=== PATIENT | male | born 1965 | race Caucasian/White ===

== ENCOUNTER 2018-11-25 00:49 | Day surgery (SDC) | payer OTHER ==
[~2018-11-25] VITALS: Ht 175.3 cm; Wt 90.3 kg
[2018-11-25 07:45] VITALS: BP 148/88
[2018-11-25] MEDS ORDERED: NORMOSOL R SOLN(*) 1000 ML BAG 1,000 ML IV PRN (08:30)
[2018-11-25] MEDS ORDERED: LIDOCAINE/SOD BICARB 8.4% SYR ID ONE (08:30)
[2018-11-25] MEDS ORDERED: LIDOCAINE MPF 1% 5 ML VIAL ONE (09:11)
[2018-11-25] MEDS ORDERED: PROPOFOL EMUL(*) 10MG/ML 20 ML 40 ML ONE (09:11)
[2018-11-25 09:30] VITALS: BP 107/68
--- NOTE | 2018-11-25 09:30 | NUR ---
0930 SBAR REPORT WAS RECEIVED FROM DR. BOLAND AND MADDIE NÚÑEZ. PATIENT IS BREATHING SPONTANEOUSLY AT A MODERATE RATE AND DEPTH. LUNGS ARE CLEAR. HE IS ON 2 LITERS OXYMASK. IV IS INFUSING. BOWEL SOUNDS ARE ACTIVE. HE IS SLEEPING UNABLE TO ASSESS PAIN OR NAUSEA.
[2018-11-25 10:00] VITALS: BP 125/74
[2018-11-25 10:11] VITALS: BP 126/86
[2018-11-25 10:13] VITALS: BP 122/77
--- NOTE | 2018-11-25 10:30 | NUR ---
1000 PATIENT WOKE UP. HE DENIES ANY NAUSEA OR PAIN. HE WAS MOVED TO ROOM AIR AND IS TOLERATING THIS WELL. 1003 PATIENT BEGAN DRINKING COFFEE 1011 BEGAN DOING ORTHOSTATICS WITH PATIENT. HE DENIES ANY DIZZINESS OR LIGHTHEADEDNESS. 1013 PATIENT IS STABLE ON HIS FEET 1014 IV WAS SALINE LOCKED 1015 PATIENT BEGAN GETTING DRESSED 1030 PATIENT WAS AMBULATORY ON DISCHARGE. LUNGS ARE CLEAR. HE IS STABLE. DENIES ANY DIZZINESS OR LIGHTHEADEDNESS. SEE DISCHARGE ASSESSMENT.
== END 2018-11-25 10:30 | disposition home or self-care (01) ==
LOC: OR 00:49
PROVIDERS: ATTEND Family Medicine
DX: Z12.11 Encounter for screening for malignant neoplasm of colon (principal)
CPT/HCPCS: 00812; 45378; J2001; J2704

== ENCOUNTER 2018-11-29 04:18 | Outpatient (RCR) | payer OTHER ==
--- NOTE | 2018-11-30 13:27 | RADIOLOGY IMAGING REPORT ---
FACILITY: [facility] [place] PATIENT NAME: Cristian Berrios : 1965 MR: [id number] V: [id number] EXAM DATE: ORDERING PHYSICIAN: KRISTIN PERLA TECHNOLOGIST: Location: [facility] Patient: Cristian Berrios : 1965 Visit/Account:[id number] Date of Sevice: 11/29/2018 NM THYROID UPTAKE - MULT. DE HISTORY: Hyperthyroidism TECHNIQUE: 359 microcuries I-123 were administered orally. Radioiodine uptake values were calculated at 24 hours following tracer administration. Gamma camera images were obtained of the neck in variou s orientations. COMPARISON: None FINDINGS: Thyroid radioiodine uptake at 24 hours is 51.4% (normal range 15-40 %). Thyroid radioiodine uptake at six hours is 32.4% (normal range 10-15%) Size and shape: Normal. Homogeneity: Normal. Nodules: None evident. IMPRESSION: Abnormally high 24 hour thyroid uptake of 51.4% Abnormally high six hour thyroid uptake of 32.4% Report Dictated By: Deepika Sierra MD at 11/30/2018 1:21 PM Report E-Signed By: Deepika Sierra MD at 11/30/2018 1:23 PM JOSE DANIELN:DAVIN
== END 2018-11-29 18:00 | disposition home or self-care (01) ==
LOC: EDSTATUS 04:18 → NUC 04:18
PROVIDERS: ATTEND Family Medicine
DX: R94.6 Abnormal results of thyroid function studies (principal)
CPT/HCPCS: 78014; A9516

== ENCOUNTER → 2018-12-30 | Outpatient (CLI) | payer OTHER | LOC: NUC 06:59 | PROVIDERS: ATTEND Radiology Radiation Oncology | DX: E03.9 Hypothyroidism, unspecified (principal) ==

== ENCOUNTER → 2019-01-04 | Outpatient (CLI) | payer OTHER ==
--- NOTE | 2019-01-05 01:04 | ONCOLOGY FOLLOW UP NOTE ---
EVENT DATE: January 04, 2019 DIAGNOSIS Thyrotoxicosis. PROCEDURE Oral administration of iodine 131 in Nuclear Medicine to ablate thyroid active cells. PROCEDURE DESCRIPTION Patient has previously met with myself and the nuclear medicine staff for appropriate education, and has signed all appropriate consent forms. He is aware of the radiation precautions that are necessary for this procedure. Patient received an oral dose of 19.8 mCi of iodine 131 under direct supervision in Nuclear Medicine. As a precautionary measure, I also gave him a prescription for a Medrol Dosepak if he should have any swelling of the thyroid gland. He will otherwise not need to take the medication. The patient has been scheduled for a followup TSH and free T4 in approximately six to eight weeks. We will perform serial measurements until the patient is either euthyroid or appropriately hypothyroid and stable, and then turn his care back over to primary care. The patient is instructed to contact me if he has any adverse effects from the iodine 131 administration. We have drawn baseline laboratory studies at the cancer center two weeks ago. Patient's baseline TSH was less than 0.02 on 12/28/18, and his baseline free T4 was 2.51 with a baseline free T3 of 8.4. Those numbers should correct over two to six months, with the average being two to four months. MTDD
== END ==
LOC: NUC 11:36
PROVIDERS: ATTEND Radiology Radiation Oncology
DX: E03.9 Hypothyroidism, unspecified (principal)
CPT/HCPCS: 79005; A9517; A9528

== ENCOUNTER 2019-02-08 09:00 | Outpatient (RCR) | payer OTHER ==
[2018-12-28 15:27] LABS: PLATELET COUNT, AUTOMATED 337 K/uL (150-450)
--- NOTE | 2018-12-28 23:39 | TOBIN CONSULT ---
EVENT DATE: December 28, 2018 REASON FOR CONSULTATION Patient is here to discuss iodine-131 for thyroid toxicosis. 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 Patient is referred to me by Dr. Bowers. The patient states that he had laboratory studies approximately two years ago which revealed an abnormal TSH. The patient states he did not have any symptoms of weight loss or excessive sweating or tremulousness at that time. At no point has he had any excessive palpitations. He has been noted to have an elevated resting pulse rate, however, over the last two years generally in the 100 to 130 range, and he has also been noted to have an elevated blood pressure as well. He states those are his only symptoms. The patient recently was seen by Dr. Bowers and additional laboratory studies performed in his office. That subsequently led to a nuclear medicine uptake scan which was performed on 11/29/18. 123 was administered orally, and overactive thyroid was appreciated at 6 hours and at 24 hours. The relative values were 34% (normal 10% to 15%) at 6 hours and 51% (normal 15% to 40%) at 24 hours. There was diffuse uptake with no cold spots. There appeared to be slightly more uptake on the right side compared to the left on my review of the films with the patient today. The patient reviewed options with the primary care and also has been doing some independent reading. He would like to discuss iodine-131 treatment. Patient denies any ocular symptoms at this time. He is not having any headaches. As stated above, he is not experiencing any palpitations, weight loss, or changes in hair or skin. MEDICATIONS None. ALLERGIES None. PAST MEDICAL HISTORY Unremarkable except stated above. PAST SURGICAL HISTORY Prior vasectomy. FAMILY HISTORY Notable for a brother with recent diagnosis of pancreatic carcinoma in his mid 50s. He is at the [facility] at this time receiving chemotherapy and radiation. I believe he is 57. Patient states his father may have had cancer at age 75 as well, but is uncertain of the type. His mother is still alive and has Parkinson disease at age 80. This developed in her 60s. SOCIAL HISTORY Patient is . 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 REVIEW OF SYSTEMS Notable for minor fatigue, rare sweats. Occasionally has shortness of breath with exertion. Mild urgency. PHYSICAL EXAMINATION GENERAL: Pleasant 53-year-old male of medium build. VITAL SIGNS: BP 157/86, pulse 106 resting, respirations 16, O2 sat 91% on room air. Weight 214. Fatigue is rated as a 3 on a scale of 1-10. Denies pain. HEENT: Unremarkable. NECK: Thyroid gland does not appear to be overly enlarged or tender. No nodularity. LUNGS: Clear to auscultation bilaterally. HEART: Sounds regular with no audible murmur. ABDOMEN: Soft. No gross organomegaly, mass, or tenderness. EXTREMITIES: No edema or cyanosis. NEUROLOGIC: Grossly intact. IMPRESSION AND PLAN This is a 53-year-old gentleman who presents to his providers with an abnormal resting pulse rate, mild hypertension, with laboratory studies and uptake scan confirmatory for toxic diffuse goiter (thyrotoxicosis) with no crisis or storm. We briefly discussed medications, surgery, watchful waiting. We also discussed the present status of iodine-131 and its role in the use of treating this condition. There is an excellent review on line from the 2016 [place] [employer] guidelines for diagnosis and management of hyperthyroidism and other causes of thyroid toxicosis. The authors state that iodine-131 is utilized by approximately 60% to 70% of endocrinologists in this country at this time. The options need to be individualized for patients based on their desires. Prevalence of hyperthyroidism is 1.2% in the [place] with the most common causes including Graves disease, toxic multinodular goiter, and toxic adenoma. For the patients who desire to proceed with radioactive iodine, the present consensus is to deliver a dose of 15-20 mCi of iodine-131 and intentionally attempt to produce a hypothyroid state within 6-12 months. Once the patient is hypothyroid, it is relatively easy to manage the patient with supplementation with fairly stable needs going forward. In the past, we have attempted to use lower doses to produce a euthyroid state; however, that frequently caused patients to receive a second dose of iodine-131 and sometimes be undertreated significantly for 3-6 months. Patients who are moderately to severely symptomatic, they would be placed on a beta nolvia or methimazole, and then the methimazole would be stopped 3 days before the iodine-131 therapy. This particular patient does not have any significant symptoms of thyrotoxicosis and, therefore, would not need methimazole at this time. He states he is not on a beta nolvia and presently seems to have fairly normal energy levels, although at times his fatigue level is higher than others which may be related to his tachycardia, although it is difficult to discern exactly. I discussed the typical protocol in which we deliver iodine-131 in our Nuclear Medicine Department. Patient will be placed on radiation precautions for 3 days. They would have an instructional session with the polysomnographic technologist within the next week. I would supervise the oral administration, and I would also obtain baseline laboratory studies at 6 and 12 weeks going forward. I told the patient that most likely he will need laboratory studies q.6-8 weeks for the remainder of this year. I did have blood work drawn today for a new baseline, free T4, T3, and TSH. CBC and CMP were also obtained. The latter were normal, and the thyroid studies were pending at the time of this dictation. Tentative plan is to deliver the iodine-131 next Thursday providing we can get the isotope in place by then. He would also have a whole body uptake scan 10 days later to document efficacy. Signed consent was obtained from the patient today. He appears to be well informed, and all questions were answered to his satisfaction. Thank you for the referral. I will refer the patient back to primary care after approximately 3 months when all laboratory studies are hopefully stable. The efficacy should be 85% to 90%, and the time to become hypothyroid is variable from 2 to 6 months on average. IBAND
[2019-02-07 08:27] VITALS: BP 146/83
[2019-02-07 08:42] LABS: PLATELET COUNT, AUTOMATED 267 K/uL (150-450)
[2019-02-08 09:07] VITALS: BP 136/86
--- NOTE | 2019-02-08 10:45 | ONCOLOGY FOLLOW UP NOTE ---
EVENT DATE: February 08, 2019 DIAGNOSES Thyroid toxicosis, status post Iodine-131 therapy, January 04, 2019. Patient receiving 19.8 mCi under my direction in Nuclear Medicine. INTERVAL HISTORY The patient is being monitored for normalization of the thyroid blood test following therapeutic Iodine-131 treatment for hyperthyroidism. Patient was diagnosed in November of this year as being hyperthyroid. He had significantly elevated Nuclear Medicine Uptake scan with 123. His TSH was less than 0.02. Patient has elected to have Iodine-131 therapy as opposed to surgery or medications. Presently, we are awaiting for full effect of the Iodine-131 treatment, which is typically in the two month to six month range. Following oral administration of the Iodine-131, the patient does require feeling normal for the following week. After that period of time, he has noted a slight increase in fatigue. This is nonspecific. He denies any palpitations. No excessive sweating. I was able to do normal activities throughout the day. He does have a vague headache in the temporal area bilaterally. He has also noticed some nonspecific fullness in the lower neck. Yesterday, the patient had lab work drawn, which demonstrates his free T4 to remain elevated at 5.1 (normal 0.7 to 2.1). TSH remains overly suppressed at less than 0.02. Total T3 is still pending. CBC and CMP were normal. MEDICATIONS Ibuprofen p.r.n. ALLERGIES None. PAST MEDICAL HISTORY Thyroid toxicosis, status post Iodine-131 therapy. PAST SURGICAL HISTORY Prior vasectomy. FAMILY HISTORY Brother with pancreatic carcinoma in his 50s. He was at the [facility] receiving chemotherapy and radiation in his late 50s. His father had cancer at around 75 but he is uncertain of the type. Mother is still alive and has Parkinson's disease at age 80; that developed in her 60s. SOCIAL HISTORY Patient is . 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 REVIEW OF SYSTEMS Notable for the fatigue and some headaches. Otherwise unremarkable. PHYSICAL EXAMINATION GENERAL: Pleasant 53-year old male of medium build. VITAL SIGNS: Weight 214, height 59 inches, BP 136/86, pulse 70 and regular, respirations 16. O2 sat 96%. Fatigue is rated at 6. HEENT: Notable for nonspecific swelling of the thyroid gland with no discrete nodularity. Intraoral inspection reveals no exudates. LUNGS: Clear bilaterally. HEART: Regular. No audible murmur. ABDOMEN: No gross organomegaly, mass or tenderness. NEUROLOGIC: Intact. IMPRESSION Thyrotoxicosis, status post Iodine-131 therapy. PLAN Recheck full laboratory parameters in eight weeks. I suspect by that point we should start to see some normalization of the TSH back in the 0.3 to 0.5 range. In general, it takes anywhere from two months to six months for the Iodine-131 therapy to be effective and is variable from patient to patient. He will have blood work drawn two days before he sees me. The patient will try massage and NSAIDs on a p.r.n. basis for the headaches and I strongly suspect he will be feeling better by the next clinical appointment. Updated note will be sent to Dr. Bowers at that time. NATALIYA
== END 2019-03-27 ==
LOC: RAON 09:00
PROVIDERS: ATTEND Radiology Radiation Oncology
DX: E05.90 Thyrotoxicosis, unspecified without thyrotoxic crisis or storm (principal); I10 Essential (primary) hypertension
CPT/HCPCS: 36415; 82040; 82247; 82310; 82374; 82435; 82565; 82947; 84075; 84132; 84155; 84295; 84439; 84443; 84450; 84460; 84480; 84481; 84520; 85025; 99212

== ENCOUNTER 2019-06-14 11:57 | Outpatient (RCR) | payer OTHER ==
[2019-04-01 08:35] VITALS: BP 137/83
[2019-04-05 09:00] VITALS: BP 140/83
--- NOTE | 2019-04-05 10:36 | ONCOLOGY FOLLOW UP NOTE ---
EVENT DATE: April 05, 2019 CHIEF COMPLAINT/REASON FOR VISIT Known history of hyperthyroidism. Patient received Iodine-131 therapy under my direction, January 04, 2019. He received 19.8 mCi in Nuclear Medicine Department of [facility]. Patient is here for followup labs and review clinical status. INTERVAL HISTORY Overall, the patient has been doing exceptionally well. He was feeling normal until last . About for days ago, he started feeling sluggish for no reason. He was due for his blood work at that time and had a TSH and free T4 drawn April 01, 2019. TSH was 0.77 and free T4 was 0.3 (normal T4 is 0.78 to 2.19). Patient also feels he has some minor fluid retention in the last few days. He also reports last night that he has an area of the back of the scalp that was causing some pruritus. MEDICATIONS Ibuprofen p.r.n. ALLERGIES None. PAST MEDICAL HISTORY Thyroid toxicosis, status post Iodine-131 therapy, December 2018. PAST SURGICAL HISTORY Prior vasectomy. FAMILY HISTORY Brother with pancreatic cancer in his 50s. He was at the [facility] with chemotherapy and radiation. Gather had cancer of uncertain type at age 75. Mother is alive with Parkinson's disease in her 80s. Symptoms developed in her 60s. SOCIAL HISTORY Patient is . 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 REVIEW OF SYSTEMS Notable for the fatigue, occasional headaches and minor fluid retention as listed above. Otherwise unremarkable. PHYSICAL EXAMINATION GENERAL: Karnofsky Performance Status: 90. VITAL SIGNS: BP 140/83, pulse 83, respirations 16, temperature 97.2, O2 sat 91% on room air, weight 226. Fatigue rated as 5 on a scale of 1 to 10. HEENT: Notable for small area of what appears to be early folliculitis on the occipital area on the left, only minor redness at this time with associated dry skin. NECK: No lymphadenopathy. No tenderness noted of the gland, which is significantly smaller. LUNGS: Clear bilaterally. HEART: Regular. No audible murmur. ABDOMEN: Soft. No gross organomegaly EXTREMITIES: No edema or cyanosis. NEUROLOGIC: Intact. IMPRESSION AND PLAN Thyrotoxicosis, appears to have responded to the Iodine-131 therapy. His numbers indicate that he is gradually headed into a hypothyroid state over the next two to three weeks as well as his symptom complex. At this time, I would like to start him on levothyroxine at a relatively low dose of 0.25 mg q.d. This was phoned into [facility]. Labs will be repeated in four to five weeks and the numbers will be rechecked. I also gave the patient prescription for Z-Al if the folliculitis gets worse. He states he also has history of some acneiform lesions, which all resolved after his Iodine-131 therapy. Patient's presenting symptom of elevated pulse rate has resolved as well with his pulse today at 83 resting. Plan is to normalize his laboratory studies over the next six months and then I will release him back to Dr. Bowers's clinic exclusively. All questions were answered to his satisfaction over a 40-minute appointment including 30 minutes [id number] and 10 minutes reviewing laboratory studies and clinical history in detail. NATALIYA
[2019-05-09 09:05] VITALS: BP 142/83
[2019-05-09 09:19] LABS: PLATELET COUNT, AUTOMATED 320 K/uL (150-450)
[2019-05-10 12:18] VITALS: BP 142/87
--- NOTE | 2019-05-10 14:09 | ONCOLOGY FOLLOW UP NOTE ---
EVENT DATE: May 10, 2019 CHIEF COMPLAINT/REASON FOR VISIT Patient is here to go over recent laboratory studies. Known history of hyperthyroidism/thyrotoxicosis. Patient received iodine-131 under my direction on January 04, 2019. Received 19.8 millicuries in Nuclear Medicine Department of [facility]. INTERVAL HISTORY The patient seen for a followup appointment today. He states he still is feeling sluggish during the day. He did run out of levothyroxine last week and took a dose on Thursday, Thursday and Thursday and then elected to have his blood work repeated on May 09, 2019, which was yesterday. He essentially was off any replacement medicine for five days. The TSH was starting to move up at his last appointment in March to 0.77. Due to his fatigue symptom, I placed him on low-dose levothyroxine hoping that he would feel more like his normal self. His free T4 at that time was low at 0.3 with normal being 0.8 to 2.2. Patient does remain very busy. 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 Updated TSH is undetectable at less than 0.02 and total T4 was 5.6 with normal being 5.5 to 11 ug/dL. MEDICATIONS Ibuprofen p.r.n. ALLERGIES None. PAST MEDICAL HISTORY Thyrotoxicosis, status post iodine-131 therapy, December 2018. PAST SURGICAL HISTORY Vasectomy. FAMILY HISTORY Brother with pancreatic carcinoma in his 50s, treated at [facility]. Father had cancer of uncertain type, age 75. Mother had Parkinson's disease in her 80s. Symptoms developed in her 60s. SOCIAL HISTORY Patient is . 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 REVIEW OF SYSTEMS Notable for fatigue. He also states he developed a lesion on his left eyelid over the last week. This happened after he was swimming in the ocean. PHYSICAL EXAM GENERAL: Pleasant 53-year old male, medium build. VITAL SIGNS: Weight 219, BP 142/87, pulse 84, respirations 16, O2 sat 93%. NECK: Minor fullness. Otherwise unremarkable. Remainder of exam deferred as the purpose of today's visit was predominantly to go over laboratory studies and advise accordingly. IMPRESSION/PLAN 1. Thyrotoxicosis. Status post iodine-131 therapy. I do not think the present laboratory studies are entirely accurate due to the way the patient was taking his levothyroxine this past week. I would like to wait an additional two weeks with the patient off levothyroxine completely and then recheck his free T4 and TSH. This will be done the first week in May. 2. I also instructed the patient I may get help with endocrinology assistance as many patient's with thyroid disorders do feel fatigued chronically and he may require specialized care. I will dictate an updated note to the providers in the next four weeks. Iodine-131 therapy typically reduces euthyroid or hypothyroid state within a period of 3 to 12 months. MTDD
[2019-05-23 14:37] VITALS: BP 134/93
--- NOTE | 2019-05-26 20:27 | ONCOLOGY FOLLOW UP NOTE ---
EVENT DATE: May 23, 2019 CHIEF COMPLAINT Followup for hyperthyroidism/thyrotoxicosis. HISTORY OF PRESENT ILLNESS Patient is a 53-year-old male who was seen today in followup. When he was seen on 05/10/19, levothyroxine was held as his TSH was less than 0.02 and T4 was 5.6. He continues with some mild fatigue and decreased focus in the afternoon. He describes some "swelling." He is not taking levothyroxine at this time and has questions regarding his treatment and expected course of recovery. ONCOLOGY HISTORY Patient was noted to be hyperthyroid, with thyrotoxicosis. He received iodine- 131 on 01/04/19 and received 19.8 mCi at the time. He presented in March and was noted to be hyperthyroid; however, he was very fatigued and noted some swelling. He was started on levothyroxine 25 mcg daily. When seen on 05/10/19, TSH showed continued hyperthyroid. Levothyroxine was held, and he presents today in followup. MEDICAL HISTORY Thyrotoxicosis, status post iodine-131 therapy, December 2018. SURGICAL HISTORY Vasectomy. FAMILY HISTORY Brother with pancreatic cancer in his 50s. Father had a cancer of unknown origin, age 75. Mother had Parkinson's in her 80s. SOCIAL HISTORY Patient is . They have no children. 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 REVIEW OF SYSTEMS A 12-point review of systems is performed and is negative except as stated above. PHYSICAL EXAMINATION VITAL SIGNS: Blood pressure 134/83, pulse 72, respirations 16, temp 98.2, O2 sat 93%. GENERAL: Patient is a well-developed, well-nourished male in no acute distress. HEAD: Normocephalic, atraumatic. EYES: Sclerae anicteric. MOUTH: Moist mucous membranes. NECK: Supple. No palpable adenopathy. LUNGS: Clear bilaterally. CARDIOVASCULAR: Heart rate regular, 72 per minute. EXTREMITIES: Trace pedal edema bilaterally. NEURO: Nonfocal. LABORATORY TSH is 8.94. T4 is 0.18. ASSESSMENT The patient is a 53-year-old male with a history of hyperthyroidism/thyrotoxicosis. He was treated with iodine-131 on 01/04/19. He continues with fatigue and complaints of swelling. PLAN 1. Hypothyroidism. TSH has now increased to 8.94 with a T4 of 0.18, and he does have symptoms of fatigue as well as some swelling. He will begin levothyroxine 25 mcg p.o. daily. He is in agreement with this plan. We will consider referral to Endocrinology in the future if labs do not stabilize. 2. Follow up on 06/13/19 for labs with TSH and T4. 3. Follow up with Dr. Valadez on 06/14/19 for continued care. Patient will be out of town from 05/30/19 through 06/11/19. NATALIYA
[2019-06-13 10:33] VITALS: BP 148/91
[~2019-06-14 11:57] MED LIST: LEVO25TA61 PO; LEVO50TA86 PO
[2019-06-14 12:06] VITALS: BP 139/80
--- NOTE | 2019-06-14 20:36 | ONCOLOGY FOLLOW UP NOTE ---
EVENT DATE: June 14, 2019 CHIEF COMPLAINT/REASON FOR VISIT Known history of thyroid toxicosis. Patient is here for symptom management and ongoing monitoring of therapeutic response to iodine-131 treatment. HISTORY OF PRESENT ILLNESS Patient was initially seen in December [address] Bowers for iodine-131 considerations. His TSH was undetectable, and patient had weight loss with an elevated pulse rate in the 100 to 130 range. The patient received iodine-131 treatment under my direction at [facility], and presently we are monitoring the response to that treatment. The most recent TSH is now elevated at 9.8 as of 06/13/19 with free T4 level 0.35. It appears from our lab review that it took approximately three to four months to induce a hypothyroid state in order to initiate levothyroxine therapy. Presently, the patient is experiencing fatigue and also some swelling over his hands, which would be fairly classic for hypothyroidism. He may have tingling at times when the hands or feet get swollen as well. Patient is here for lab review and recommendations. MEDICATIONS Levothyroxine 25 mcg daily. ALLERGIES None. PAST MEDICAL HISTORY Thyrotoxicosis. SURGICAL HISTORY Prior vasectomy. FAMILY HISTORY Notable for brother who had pancreatic carcinoma in his mid 50s. He is now 57. His father had some type of cancer in his mid 70s. Mother had Parkinson disease in her 60s and is approximately in her 80s, I believe. 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 He is . REVIEW OF SYSTEMS See notes on chart. Fatigue, hand swelling, headaches. PHYSICAL EXAMINATION GENERAL: Pleasant 53-year-old male, medium to slightly large frame. VITAL SIGNS: Weight 227. BP 139/80, pulse 77, respirations 16, O2 sat 93% on room air. NECK: No palpable mass in the neck. LUNGS: Clear bilaterally. HEART: Sounds regular. ABDOMEN: Soft. No gross organomegaly. EXTREMITIES: 1+ swelling over the hands and feet. NEUROLOGIC: Grossly intact. IMPRESSION At this time, the patient appears to be pulling into the hypothyroid state at a point where we need to correct him back into the normal range. PLAN I calculated replacement value based on his weight of 150 mcg p.o. daily. He will start this within the next 24 hours and hopefully be feeling better within seven to 14 days. He will be seen back in the clinic in six weeks with TSH and free T4. I will be releasing him back to Dr. Bowers for followup exclusively once I get his numbers stabilized. All questions were answered to his satisfaction over a 40-minute followup appointment today, greater than 30 minutes spent face to face with the patient for complex counseling and laboratory review. NATALIYA
== END 2019-06-29 ==
LOC: RAON 11:57
PROVIDERS: ATTEND Radiology Radiation Oncology
DX: E05.90 Thyrotoxicosis, unspecified without thyrotoxic crisis or storm (principal); I10 Essential (primary) hypertension; R53.83 Other fatigue
CPT/HCPCS: 36415; 82040; 82247; 82310; 82374; 82435; 82565; 82947; 84075; 84132; 84155; 84295; 84436; 84439; 84443; 84450; 84460; 84520; 85025; 99212